=== PATIENT | female | born 1955 | race Caucasian/White ===

== ENCOUNTER 2018-07-19 13:29 | Day surgery (SDC) | payer MEDICARE ==
[2018-07-17 15:22] LABS: EOSINOPHILS # (AUTO) 0.2 X10'3 (0-0.9); EOSINOPHILS % (AUTO) 3.7 % (0-6); HEMATOCRIT 41.4 % (35.0-45.0); HEMOGLOBIN 13.8 g/dl (12.0-16.0); LYMPHOCYTES # (AUTO) 1.3 X10'3 (1.1-4.8); LYMPHOCYTES % (AUTO) 28.4 % (21-51); MEAN CORPUSCULAR HEMOGLOBIN 30.1 PG (27.0-31.0); MEAN CORPUSCULAR HGB CONC 33.4 g/dL (33.0-36.5); MEAN CORPUSCULAR VOLUME 90.3 FL (78-98); MONOCYTES # (AUTO) 0.3 X10'3 (0-0.9); MONOCYTES % (AUTO) 7.3 % (2-12); NEUTROPHILS # (AUTO) 2.8 X10'3 (1.8-7.7); NEUTROPHILS % (AUTO) 59.6 % (42-75); PLATELET COUNT 276 X10'3 (140-440); RED BLOOD COUNT 4.58 X10'6 (4.20-5.60); RED CELL DISTRIBUTION WIDTH 14.7 % (11.5-14.5); WHITE BLOOD COUNT 4.8 X10'3 (4.5-11.0)
[2018-07-17 15:32] LABS: INR 1.1 INR; PARTIAL THROMBOPLASTIN TIME 26 SECONDS (22-32); PROTHROMBIN TIME 10.7 SECONDS (9.0-12.0)
[2018-07-17 15:34] LABS: ANION GAP 8 (8-16); BLOOD UREA NITROGEN 20 MG/DL (7-18); BUN/CREATININE RATIO 21.3 (6.6-38.0); CALCIUM 9.2 MG/DL (8.5-10.1); CHLORIDE 107 MMOL/L (99-107); CREATININE 0.94 MG/DL (0.40-0.90); GLUCOSE 91 MG/DL (70-104); POTASSIUM 3.9 MMOL/L (3.5-5.1); SODIUM 143 MMOL/L (135-145); TOTAL CARBON DIOXIDE 28.2 MMOL/L (24-32); eGFR 61 ML/MIN
[~2018-07-19] VITALS: Ht 180.3 cm; Wt 101.2 kg
[2018-07-19] VITALS (9 sets, daily range): BP systolic 88–210; BP diastolic 64–118
[2018-07-19] MEDS ORDERED: LORazepam 0.5 MG tablet PO ONE (13:55)
[2018-07-19] MEDS ORDERED: diphenhydrAMINE 25mg capsule PO ONE (13:55)
[2018-07-19] MEDS ORDERED: normal saline 1000ml 1,000 ML IV SCH (13:55)
[2018-07-19] MEDS ORDERED: CYCL5TAB PO (15:03)
[2018-07-19] MEDS ORDERED: MORP-64 PO (15:03)
[2018-07-19] MEDS ORDERED: LEVO100T9 PO (15:03)
[2018-07-19] MEDS ORDERED: FLUO20CA39 PO (15:03)
[2018-07-19] MEDS ORDERED: DOCU-273 PO (15:03)
[2018-07-19] MEDS ORDERED: HYDR25SU48 RC (15:03)
[2018-07-19] MEDS ORDERED: MULT-955 PO (15:03)
[2018-07-19] MEDS ORDERED: MINO100T PO (15:03)
[2018-07-19] MEDS ORDERED: BUPR150T8 PO (15:03)
[2018-07-19] MEDS ORDERED: SPIR25TA5 PO (15:03)
[2018-07-19] MEDS ORDERED: FLUT16SP2 BOTHNARES (15:03)
[2018-07-19] MEDS ORDERED: CHOL10002 PO (15:03)
[2018-07-19] MEDS ORDERED: NALT50TA PO (15:03)
[2018-07-19] MEDS ORDERED: LORA10TA7 PO (15:03)
[2018-07-19] MEDS ORDERED: iohexol 350MG/ML 100ml bottle IV ONE (16:12)
[2018-07-19] MEDS ORDERED: LIDOcaine 1% (10mg/ml)w/preservative injection 20ml MDV ONE (16:12)
[2018-07-19] MEDS ORDERED: midazolam 2 mg/2 ml injection ONE ×2 (16:58→17:09)
[2018-07-19] MEDS ORDERED: diphenhydrAMINE 50 mg/ml inj ONE (16:58)
[2018-07-19] MEDS ORDERED: fentaNYL/PF 50MCG/1 ML 2ML syringe ONE (16:58)
[2018-07-19] MEDS ORDERED: HYDROcodone/acetaminophen 10/325mg tab PO PRN (17:55)
[2018-07-19] MEDS ORDERED: ondansetron/PF 4mg/2ml inj ONE (17:59)
[2018-07-19] MEDS ORDERED: HYDROcodone/acetaminophen 5mg/325mg tablet PO PRN (18:00)
[2018-07-19] MEDS ORDERED: morphine ER 15mg tablet PO ONE (18:05)
[2018-07-19] MEDS ORDERED: proCHLORperazine 10 MG/2 ml inj IV PRN (18:05)
[2018-07-19] MEDS ORDERED: ondansetron/PF 4mg/2ml inj IV PRN (18:05)
== END 2018-07-19 19:15 | disposition home or self-care (01) ==
LOC: SSTAY O 13:29
PROVIDERS: ATTEND Internal Medicine Interventional Cardiology
DX: I20.9 Angina pectoris, unspecified (principal); I10 Essential (primary) hypertension; F32.9 Major depressive disorder, single episode, unspecified; E78.5 Hyperlipidemia, unspecified; Z88.6 Allergy status to analgesic agent; Z88.8 Allergy status to other drugs, medicaments and biological substances; Z79.899 Other long term (current) drug therapy; Z87.891 Personal history of nicotine dependence
CPT/HCPCS: 36415; 80048; 85025; 85610; 85730; 93005; 93458; 99152; A6257; J1200; J1644; J2001; J2250; J2405; J3010; J7030; Q0163; Q9967; A4620; C1760; C1769

== ENCOUNTER 2020-10-23 09:50 | Outpatient (CLI) | payer OTHER ==
[~2020-10-23] VITALS: Ht 180.3 cm; Wt 98.4 kg
[~2020-10-23 09:50] MED LIST: BUPR150T8 PO; CHOL10002 PO; CYCL5TAB PO; DOCU-273 PO; FLUO20CA39 PO; FLUT16SP2 BOTHNARES; HYDR25SU48 RC; LEVO100T9 PO; LORA10TA7 PO; MINO100T PO; MORP-92 PO; MULT-955 PO; NALT50TA PO; SPIR25TA5 PO
[2020-10-23] MEDS ORDERED: ESTR1PAT34 TD (12:02)
[2020-10-23] MEDS ORDERED: VITA-268 PO (12:02)
[2020-10-23] MEDS ORDERED: 5-HY100C PO (12:02)
[2020-10-23] MEDS ORDERED: MAGN400C PO (12:02)
[2020-10-23] MEDS ORDERED: OXYB15TA19 PO (12:02)
[2020-10-23] MEDS ORDERED: PROG100C11 PO (12:02)
[2020-10-23] MEDS ORDERED: AMLO2.5T2 PO (12:02)
[2020-10-23] MEDS ORDERED: LEVO15TA5 PO (12:02)
[2020-10-23 12:42] LABS: EOSINOPHILS # (AUTO) 0.2 X10'3 (0-0.9); EOSINOPHILS % (AUTO) 3.1 % (0-6); LYMPHOCYTES # (AUTO) 1.2 X10'3 (1.1-4.8); LYMPHOCYTES % (AUTO) 22.8 % (21-51); MEAN CORPUSCULAR HEMOGLOBIN 30.5 PG (27.0-31.0); MEAN CORPUSCULAR HGB CONC 33.4 g/dL (33.0-36.5); MEAN CORPUSCULAR VOLUME 91.3 FL (78-98); MEAN PLATELET VOLUME 8.4 FL (7.4-10.4); MONOCYTES # (AUTO) 0.3 X10'3 (0-0.9); MONOCYTES % (AUTO) 5.4 % (2-12); NEUTROPHILS # (AUTO) 3.5 X10'3 (1.8-7.7); NEUTROPHILS % (AUTO) 67.7 % (42-75); PRE OP HEMATOCRIT 45.5 % (35.0-45.0); PRE OP HEMOGLOBIN 15.2 g/dL (12.0-16.0); PRE OP PLATELET COUNT 260 X10'3 (140-440); RED BLOOD COUNT 4.98 X10'6 (4.20-5.60); RED CELL DISTRIBUTION WIDTH 14.9 % (11.5-14.5)
[2020-10-23 13:08] LABS: ALBUMIN 4.1 G/DL (3.4-5.0); ALBUMIN/GLOBULIN RATIO 1.3 (1.1-1.5); ALKALINE PHOSPHATASE 62 IU/L (46-116); BLOOD UREA NITROGEN 17 MG/DL (7-18); BUN/CREATININE RATIO 18.1 (6.6-38.0); CALCIUM 8.5 MG/DL (8.5-10.1); CHLORIDE 108 MMOL/L (99-107); CREATININE 0.94 MG/DL (0.40-0.90); PRE OP ALT 25 U/L (30-65); PRE OP ANION GAP 8 (8-16); PRE OP AST 20 U/L (10-37); PRE OP BILIRUB, TOTAL 0.9 MG/DL (0.0-1.0); PRE OP GLUCOSE 89 MG/DL (70-104); PRE OP POTASSIUM 3.8 MMOL/L (3.4-5.1); PRE OP SODIUM 144 MMOL/L (135-145); TOTAL CARBON DIOXIDE 27.6 MMOL/L (24-32); TOTAL PROTEIN 7.2 G/DL (6.4-8.2); eGFR 60 ML/MIN
[2020-10-28] MEDS ORDERED: ringers solution, lacted 1,000 ML IV SCH (05:00)
[2020-10-28] MEDS ORDERED: celeCOXIB 100mg capsule PO ONE (05:30)
[2020-10-28] MEDS ORDERED: oxyCODONE SR 10mg (sust. release) tab -2 tabs (20mg) PO ONE (05:30)
[2020-10-28] MEDS ORDERED: gabapentin 300mg capsule PO ONE (05:30)
[2020-10-28] MEDS ORDERED: acetaminophen 325mg tablet PO ONE (05:30)
[2020-10-28] MEDS ORDERED: vancomycin 1,500 MG in NS 300ml IV soln IV ONE (05:30)
[2020-10-28] MEDS ORDERED: famotidine 20mg tablet PO ONE (05:30)
[2020-10-28] MEDS ORDERED: cefazolin/dext.iso 2gm/100ml IV ONE (05:30)
[2020-10-28] MEDS ORDERED: metoclopramide 5 mg/ml inj IV ONE (05:30)
[2020-10-28] MEDS ORDERED: TRANEXAMIC ACID 1 GM IN NACL,ISO-OS 100 ML IV ONE (06:00)
== END 2020-10-23 23:59 | disposition home or self-care (01) ==
LOC: PRE-OP 09:50 → EDSTATUS 10-28 08:45
PROVIDERS: ATTEND Orthopaedic Surgery
DX: Z01.818 Encounter for other preprocedural examination (principal); M17.11 Unilateral primary osteoarthritis, right knee; M25.561 Pain in right knee; R00.1 Bradycardia, unspecified; Z20.822 Contact with and (suspected) exposure to COVID-19
CPT/HCPCS: 36415; 71046; 80053; 84443; 85025; 86885; 86900; 86901; 87081; 93005; U0003; U0005; J3370; J7040; J7120

== ENCOUNTER 2020-12-09 06:20 | Day surgery (SDC) | payer OTHER ==
[2020-12-02 12:29] LABS: BASOPHILS # (AUTO) 0.1 X10'3 (0-0.2); EOSINOPHILS # (AUTO) 0.2 X10'3 (0-0.9); EOSINOPHILS % (AUTO) 3.4 % (0-6); LYMPHOCYTES # (AUTO) 1.6 X10'3 (1.1-4.8); LYMPHOCYTES % (AUTO) 24.8 % (21-51); MEAN CORPUSCULAR HEMOGLOBIN 30.7 PG (27.0-31.0); MEAN CORPUSCULAR HGB CONC 33.5 g/dL (33.0-36.5); MEAN CORPUSCULAR VOLUME 91.6 FL (78-98); MEAN PLATELET VOLUME 7.6 FL (7.4-10.4); MONOCYTES # (AUTO) 0.3 X10'3 (0-0.9); MONOCYTES % (AUTO) 4.9 % (2-12); NEUTROPHILS # (AUTO) 4.2 X10'3 (1.8-7.7); NEUTROPHILS % (AUTO) 65.9 % (42-75); PRE OP HEMATOCRIT 45.1 % (35.0-45.0); PRE OP HEMOGLOBIN 15.1 g/dL (12.0-16.0); PRE OP PLATELET COUNT 278 X10'3 (140-440); RED BLOOD COUNT 4.93 X10'6 (4.20-5.60); RED CELL DISTRIBUTION WIDTH 15.2 % (11.5-14.5)
[2020-12-02 12:35] LABS: CLARITY,URINE CLEAR (Clear); COLOR,URINE YELLOW (Yellow); GLUCOSE, URINE NEGATIVE (Neg); KETONES,URINE NEGATIVE (Neg); LEUKOCYTE ESTERASE ,URINE NEGATIVE (Neg); NITRITES, URINE NEGATIVE (Neg); OCCULT BLOOD,URINE TRACE-LYSED (Neg); PROTEIN,URINE NEGATIVE (Neg); UROBILINOGEN,URINE 0.2 E.U/dL (0.2-1.0)
[2020-12-02 12:40] LABS: UA COLLECTION TYPE CLN CATCH MIDSTREAM
[2020-12-02 12:41] LABS: BACTERIA,URINE NONE SEEN /HPF (Neg); MUCUS STRANDS NONE SEEN /LPF (Neg); RBC,URINE 0-2 /HPF (0-2); SQUAMOUS EPITHELIAL CELL,UR FEW /LPF (FEW); WBC,URINE NONE SEEN /HPF (0-4)
[2020-12-02 12:45] LABS: ALBUMIN 4.3 G/DL (3.4-5.0); ALBUMIN/GLOBULIN RATIO 1.4 (1.1-1.5); ALKALINE PHOSPHATASE 61 IU/L (46-116); BLOOD UREA NITROGEN 14 MG/DL (7-18); BUN/CREATININE RATIO 15.9 (6.6-38.0); CALCIUM 8.4 MG/DL (8.5-10.1); CHLORIDE 107 MMOL/L (99-107); CREATININE 0.88 MG/DL (0.40-0.90); PRE OP ALT 34 U/L (30-65); PRE OP ANION GAP 9 (8-16); PRE OP AST 24 U/L (10-37); PRE OP BILIRUB, TOTAL 0.7 MG/DL (0.0-1.0); PRE OP GLUCOSE 96 MG/DL (70-104); PRE OP POTASSIUM 3.5 MMOL/L (3.4-5.1); PRE OP SODIUM 145 MMOL/L (135-145); TOTAL CARBON DIOXIDE 29.2 MMOL/L (24-32); TOTAL PROTEIN 7.4 G/DL (6.4-8.2); eGFR 65 ML/MIN
[~2020-12-09] VITALS: Ht 180.3 cm; Wt 95.3 kg
[2020-12-09] VITALS (21 sets, daily range): BP systolic 109–167; BP diastolic 49–92
[~2020-12-09 06:20] MED LIST changes: +5-HY100C PO; +AMLO2.5T2 PO; -BUPR150T8 PO; -DOCU-273 PO; +ESTR1PAT34 TD; -FLUO20CA39 PO; -FLUT16SP2 BOTHNARES; -HYDR25SU48 RC; +HYDROmorphone 1 mg/ml syringe IV PRN; +HYDROmorphone inj. 0.5 MG/0.5 ML DISP.SYRIN IV PRN; +LEVO15TA5 PO; +MAGN400C PO; -NALT50TA PO; +OXYB15TA19 PO; +PROG100C11 PO; -SPIR25TA5 PO; +VITA-268 PO; +acetaminophen 325mg tablet PO ONE; +acetaminophen 325mg tablet PO PRN; +bisacodyl 10mg suppository rectal RC PRN; +cefazolin/dext.iso 2gm/100ml IV ONE; +celeCOXIB 100mg capsule PO ONE; +cyclobenzaprine 10mg tablet PO PRN; +diphenhydrAMINE 25mg capsule PO PRN; +famotidine 20mg tablet PO ONE; +gabapentin 300mg capsule PO ONE; +magnesium hydroxide 30ml (MOM) UD suspension PO PRN; +metoclopramide 5 mg/ml inj IV ONE; +oxyCODONE SR 10mg (sust. release) tab -2 tabs (20mg) PO ONE; +ringers solution, lacted 1,000 ML IV SCH; +tranexamic acid 1gm/0.7% sal. 100 ML IV ONE; +vancomycin 1,500 MG in NS 300ml IV soln IV ONE
--- NOTE | 2020-12-09 09:04 | NUR ---
PT STATES ALLERGY TO ALL NSAIDS, REACTION HTN. DR MCFARLAND AND DR MATHEW AWARE. CELEBREX HELD PER MD
[2020-12-09] MEDS ORDERED: ROPIVAcaine 0.5% (5mg/ml) 30ml vial ONE ×2 (09:05→10:09)
[2020-12-09] MEDS ORDERED: cloNIDine hcl/PF 100mcg/ml inj ONE (09:05)
[2020-12-09] MEDS ORDERED: vancomycin 1,000mg inj ONE (09:05)
[2020-12-09] MEDS ORDERED: epiNEPHrine 1 mg/ml inj ONE (09:05)
[2020-12-09] MEDS ORDERED: fentaNYL/PF 50MCG/1 ML 2ML syringe ONE ×2 (09:31→10:42)
[2020-12-09] MEDS ORDERED: MIDAZolam 1 MG/ML 5ML VIAL ONE (09:42)
[2020-12-09] MEDS ORDERED: morphine 2 MG/ML inj. syringe IV PRN (10:00)
[2020-12-09] MEDS ORDERED: ROPIVAcaine 0.2% (10 MG/5 ML) BOLUS INJECTION ADDCANAL PRN (10:00)
[2020-12-09] MEDS ORDERED: meperidine/PF 25mg/ml syringe IV PRN ×3 (10:00)
[2020-12-09] MEDS ORDERED: ringers solution, lacted 1,000 ML IV SCH (10:00)
[2020-12-09] MEDS ORDERED: proCHLORperazine 10 MG/2 ml inj IV PRN (10:00)
[2020-12-09] MEDS ORDERED: morphine 4 MG/ML inj SYRINge IV PRN (10:00)
[2020-12-09] MEDS ORDERED: ondansetron/PF 4mg/2ml inj IV PRN (10:00)
[2020-12-09] MEDS ORDERED: ePHEDrine 50MG/ML INJ. ONE (10:09)
[2020-12-09] MEDS ORDERED: propofol inj 20 ML IV ONE ×2 (10:09→10:33)
[2020-12-09] MEDS ORDERED: dexamethasone sod phosphate 4mg/ml inj. ONE (10:09)
[2020-12-09] MEDS ORDERED: LIDOcaine 1%/PF 5ML 10 MG/ML VIAL ONE (10:09)
[2020-12-09] MEDS ORDERED: diphenhydrAMINE 50 mg/ml inj ONE (10:09)
[2020-12-09] MEDS ORDERED: acetaminophen 1,000mg/100ml IV 100 ML IV ONE (10:26)
--- NOTE | 2020-12-09 11:27 | NUR ---
Received from OR via , accompanied by Anesthesiologist DR MCFARLAND and report given by Anesthesiolgist. PT PRESENT WITH RIGHT KNEE DRESSING TUCKER AN INTACT WITH COY DRESING AND POWDER PACK. PIV 18G LEFT WRIST. Addendum: 12/09/20 at 1147 by Margaret Perla RN, RN Amended: Links added.
[2020-12-09] MEDS: ROPIVAcaine 0.2%/PF PUMP/bolus 545 ML ADDCANAL SCH (11:57)
--- NOTE | 2020-12-09 12:28 | NUR ---
RECEIVED REPORT FROM PHIL ESTRADA
[2020-12-09] MEDS: aspirin 325mg tablet PO SCH (12:29)
--- NOTE | 2020-12-09 12:47 | NUR ---
PATIENT TAKEN TO ROOM WITH ALL BELONGINGS AND HOOKED UP TO MONITORS IN ROOM AND GIVEN CALL LIGHT, REPORT GIVEN TO ELMER VILLARREAL WHO HAS TAKEN OVER PATIENT CARE. Addendum: 12/09/20 at 1252 by Margaret Perla RN, RN Amended: Links added.
[2020-12-09] MEDS: ondansetron/PF 4mg/2ml inj IV PRN (13:23)
[2020-12-09] MEDS ORDERED: tranexamic acid 1gm/0.7% sal. 100 ML IV ONE (14:30)
[2020-12-09] MEDS: oxyCODONE/APAP 10/325mg tablet PO PRN ×2 (15:01→22:58)
[2020-12-09] MEDS: levoTHYROXINE 112mcg tablet PO SCH (16:00)
[2020-12-09] MEDS: cefazolin/dext.iso 2gm/100ml 100 ML IV SCH (16:17)
[2020-12-09] MEDS: loratadine 10mg tablet PO SCH (17:41)
[2020-12-09] MEDS: multivitamins, therapeutics tablet PO SCH (17:41)
[2020-12-09] MEDS: oxybutynin 5mg tablet PO SCH (17:42)
--- NOTE | 2020-12-09 18:26 | NUR ---
gave report to jefferson tse
[2020-12-09] MEDS ORDERED: VANCOMYCIN 1,500MG inj. 1,500 MG in normal saline 500ml IV soln 500 ML IV SCH (20:00)
[2020-12-09] MEDS: potassium cl 20mEq in 1/2 NS 1,000 ML IV SCH ×2 (20:19→20:33)
[2020-12-09] MEDS: ascorbic acid 500mg tablet PO SCH (20:20)
[2020-12-09] MEDS: amLODIPine 5mg tablet PO SCH (20:23)
[2020-12-09] MEDS: amLODIPine 2.5mg tablet PO SCH (20:23)
[2020-12-09] MEDS: progesterone, micronized 100mg capsule PO SCH (20:24)
[2020-12-09] MEDS: morphine ER 15mg tablet PO SCH (20:26)
[2020-12-09] MEDS: gabapentin 300mg capsule PO SCH (20:26)
[2020-12-09] MEDS: sennosides 8.6mg tablet PO SCH (20:26)
[2020-12-10] MEDS: cefazolin/dext.iso 2gm/100ml 100 ML IV SCH (00:22)
[2020-12-10 02:00] VITALS: BP 133/74
[2020-12-10] MEDS: oxyCODONE/APAP 10/325mg tablet PO PRN ×5 (03:12→22:18)
[2020-12-10] MEDS: ondansetron/PF 4mg/2ml inj IV PRN (04:19)
[2020-12-10 06:00] VITALS: BP 121/61
[2020-12-10] MEDS: potassium cl 20mEq in 1/2 NS 1,000 ML IV SCH ×3 (06:20→22:20)
[2020-12-10 06:30] LABS: BASOPHILS % (AUTO) 0.2 % (0-1); EOSINOPHILS % (AUTO) 0.5 % (0-6); HEMATOCRIT 36.3 % (35.0-45.0); HEMOGLOBIN 12.3 g/dl (12.0-16.0); LYMPHOCYTES # (AUTO) 0.6 X10'3 (1.1-4.8); LYMPHOCYTES % (AUTO) 5.9 % (21-51); MEAN CORPUSCULAR HEMOGLOBIN 31.4 PG (27.0-31.0); MEAN CORPUSCULAR HGB CONC 33.8 g/dL (33.0-36.5); MEAN CORPUSCULAR VOLUME 92.8 FL (78-98); MEAN PLATELET VOLUME 7.9 FL (7.4-10.4); MONOCYTES # (AUTO) 0.7 X10'3 (0-0.9); MONOCYTES % (AUTO) 7.5 % (2-12); NEUTROPHILS # (AUTO) 8.4 X10'3 (1.8-7.7); NEUTROPHILS % (AUTO) 85.9 % (42-75); PLATELET COUNT 216 X10'3 (140-440); RED BLOOD COUNT 3.91 X10'6 (4.20-5.60); RED CELL DISTRIBUTION WIDTH 15.2 % (11.5-14.5); WHITE BLOOD COUNT 9.7 X10'3 (4.5-11.0)
[2020-12-10 07:04] LABS: ANION GAP 10 (8-16); CHLORIDE 108 MMOL/L (99-107); POTASSIUM 3.9 MMOL/L (3.5-5.1); SODIUM 144 MMOL/L (135-145); TOTAL CARBON DIOXIDE 26.2 MMOL/L (24-32)
[2020-12-10] MEDS: levoTHYROXINE 112mcg tablet PO SCH (07:30)
[2020-12-10] MEDS ORDERED: ESTRADIOL 0.0375 MG TOP SCH (08:00)
[2020-12-10] MEDS: aspirin 325mg tablet PO SCH (08:38)
[2020-12-10] MEDS: multivitamins, therapeutics tablet PO SCH (08:38)
[2020-12-10] MEDS: gabapentin 300mg capsule PO SCH ×3 (08:38→20:44)
[2020-12-10] MEDS: loratadine 10mg tablet PO SCH (08:39)
[2020-12-10] MEDS: ascorbic acid 500mg tablet PO SCH ×2 (08:39→20:43)
[2020-12-10] MEDS: morphine ER 15mg tablet PO SCH ×2 (08:39→20:52)
[2020-12-10] MEDS: oxybutynin 5mg tablet PO SCH (08:39)
--- NOTE | 2020-12-10 11:56 | NUR ---
Joint surgery Consult: Pt s/p R knee surgery this admit. Pt seen by DORIS for written/verbal high protein ed w/ RD contact information provided. DORIS encouraged pt to contact dietitian's office if further questions/concerns. Addendum: 12/10/20 at [address] Amended: Links added.
[2020-12-10 14:00] VITALS: BP 134/67
[2020-12-10 18:00] VITALS: BP 146/69
--- NOTE | 2020-12-10 18:30 | NUR ---
Report to Zeina VILLARREAL
--- NOTE | 2020-12-10 18:40 | NUR ---
Patient in room [facility] 4014. I have received report from Val VILLARREAL and had the opportunity to ask questions and assume patient care.
[2020-12-10] MEDS: celeCOXIB 100mg capsule PO SCH (20:00)
[2020-12-10] MEDS: lactobacillus rhamnosus 10,000 MMU CELLS/CAPSULE PO SCH (20:43)
[2020-12-10] MEDS: sennosides 8.6mg tablet PO SCH (20:43)
[2020-12-10] MEDS: progesterone, micronized 100mg capsule PO SCH (20:43)
[2020-12-10] MEDS: amLODIPine 2.5mg tablet PO SCH (20:52)
[2020-12-10] MEDS: amLODIPine 5mg tablet PO SCH (20:53)
[2020-12-10 22:00] VITALS: BP 122/59
[2020-12-10] MEDS: ROPIVAcaine 0.2%/PF PUMP/bolus 545 ML ADDCANAL SCH (22:19)
[2020-12-11] MEDS: oxyCODONE/APAP 10/325mg tablet PO PRN ×3 (04:19→15:43)
[2020-12-11 06:00] VITALS: BP 146/69
--- NOTE | 2020-12-11 06:17 | NUR ---
Problems reprioritized. Patient report given, questions answered & plan of care reviewed with Betty VILLARREAL.
--- NOTE | 2020-12-11 06:28 | NUR ---
Patient in room [facility]TH[facility] 4014. I have received report from Zeina VILLARREAL and had the opportunity to ask questions and assume patient care.
[2020-12-11 06:29] LABS: BASOPHILS % (AUTO) 0.3 % (0-1); EOSINOPHILS # (AUTO) 0.1 X10'3 (0-0.9); EOSINOPHILS % (AUTO) 1.1 % (0-6); HEMATOCRIT 35.7 % (35.0-45.0); LYMPHOCYTES # (AUTO) 0.7 X10'3 (1.1-4.8); LYMPHOCYTES % (AUTO) 8.8 % (21-51); MEAN CORPUSCULAR HEMOGLOBIN 31.1 PG (27.0-31.0); MEAN CORPUSCULAR HGB CONC 33.6 g/dL (33.0-36.5); MEAN CORPUSCULAR VOLUME 92.6 FL (78-98); MEAN PLATELET VOLUME 7.9 FL (7.4-10.4); MONOCYTES # (AUTO) 0.9 X10'3 (0-0.9); MONOCYTES % (AUTO) 10.6 % (2-12); NEUTROPHILS # (AUTO) 6.7 X10'3 (1.8-7.7); NEUTROPHILS % (AUTO) 79.2 % (42-75); PLATELET COUNT 215 X10'3 (140-440); RED BLOOD COUNT 3.86 X10'6 (4.20-5.60); RED CELL DISTRIBUTION WIDTH 15.3 % (11.5-14.5); WHITE BLOOD COUNT 8.5 X10'3 (4.5-11.0)
[2020-12-11] MEDS: multivitamins, therapeutics tablet PO SCH (07:01)
[2020-12-11] MEDS: levoTHYROXINE 112mcg tablet PO SCH (07:01)
[2020-12-11] MEDS: lactobacillus rhamnosus 10,000 MMU CELLS/CAPSULE PO SCH (07:02)
[2020-12-11] MEDS: ascorbic acid 500mg tablet PO SCH (07:02)
[2020-12-11] MEDS: celeCOXIB 100mg capsule PO SCH (07:03)
[2020-12-11] MEDS: morphine ER 15mg tablet PO SCH (07:03)
[2020-12-11] MEDS: loratadine 10mg tablet PO SCH (07:03)
[2020-12-11] MEDS: gabapentin 300mg capsule PO SCH ×2 (07:03→12:23)
[2020-12-11] MEDS: oxybutynin 5mg tablet PO SCH (07:04)
[2020-12-11] MEDS: aspirin 325mg tablet PO SCH (09:21)
[2020-12-11 10:00] VITALS: BP 130/62
[2020-12-11] MEDS ORDERED: ASPI-1 PO (11:12)
[2020-12-11] MEDS: ROPIVAcaine 0.2%/PF PUMP/bolus 545 ML ADDCANAL SCH (15:44)
== END 2020-12-11 16:30 | disposition home or self-care (01) ==
LOC: PAS 06:20 → ORTHO 4S 07:38 → PAS 12-11 16:30
PROVIDERS: ATTEND Orthopaedic Surgery
DX: M17.11 Unilateral primary osteoarthritis, right knee (principal); G89.18 Other acute postprocedural pain; E66.9 Obesity, unspecified; Z68.29 Body mass index [BMI] 29.0-29.9, adult; I10 Essential (primary) hypertension; E03.9 Hypothyroidism, unspecified; Z86.11 Personal history of tuberculosis; Z20.822 Contact with and (suspected) exposure to COVID-19; Z87.891 Personal history of nicotine dependence; Z90.710 Acquired absence of both cervix and uterus; Z87.440 Personal history of urinary (tract) infections; Z88.5 Allergy status to narcotic agent; Z88.8 Allergy status to other drugs, medicaments and biological substances; Z91.011 Allergy to milk products; Z79.899 Other long term (current) drug therapy
CPT/HCPCS: 27447; 36415; 64448; 73560; 76937; 80051; 80053; 81001; 82948; 85025; 87081; 97110; 97116; 97535; C1713; C1776; J0131; J0171; J0735; J0780; J1100; J1170; J1200; J2175; J2250; J2405; J2704; J2765; J2795; J3010; J3370; J7040; J7120; U0003; U0005; Z7506; Z7508; Z7512; A4215; A7000; G0378; J3480

== ENCOUNTER 2023-09-06 07:46 | Day surgery (SDC) | payer MEDICARE ==
[~2023-09-06] VITALS: Ht 180.3 cm; Wt 93.3 kg
[2023-09-06] VITALS (15 sets, daily range): BP systolic 134–171; BP diastolic 79–97; PULSE 51–78; RESP 9–16; TEMP 97.8; O2SAT 92–100
[~2023-09-06 07:46] MED LIST changes: +AMLO-381 PO; -AMLO2.5T2 PO; +B-CO1TAB; +CALCIUM PO; -CHOL10002 PO; +FURO-150 PO; -HYDROmorphone 1 mg/ml syringe IV PRN; -HYDROmorphone inj. 0.5 MG/0.5 ML DISP.SYRIN IV PRN; +LEVO5TAB13 PO; +LIDOcaine 1% w/EPI 1:100,000 inj. MDV 50 ML VIAL ONE; -LORA10TA7 PO; +MAGN100T PO; -MAGN400C PO; -MINO100T PO; -MORP-92 PO; -MULT-955 PO; -OXYB15TA19 PO; +OXYB5TAB21 PO; +TURMERIC/GINGER; -VITA-268 PO; +VITAMIN D3; -acetaminophen 325mg tablet PO ONE; -acetaminophen 325mg tablet PO PRN; -bisacodyl 10mg suppository rectal RC PRN; -cefazolin/dext.iso 2gm/100ml IV ONE; -celeCOXIB 100mg capsule PO ONE; +cocaine 4% topical solution 4ml bottle ONE; -cyclobenzaprine 10mg tablet PO PRN; -diphenhydrAMINE 25mg capsule PO PRN; +epiNEPHrine 1 mg/ml 30ml MDV ONE; -famotidine 20mg tablet PO ONE; -gabapentin 300mg capsule PO ONE; -magnesium hydroxide 30ml (MOM) UD suspension PO PRN; -metoclopramide 5 mg/ml inj IV ONE; +mupirocin 2% ointment 22GM ONE; -oxyCODONE SR 10mg (sust. release) tab -2 tabs (20mg) PO ONE; -ringers solution, lacted 1,000 ML IV SCH; -tranexamic acid 1gm/0.7% sal. 100 ML IV ONE; -vancomycin 1,500 MG in NS 300ml IV soln IV ONE
[2023-09-06] MEDS: famotidine 20mg tablet PO ONE (09:03)
[2023-09-06] MEDS: cefazolin 2gm/D5W 100mL 100 ML IV ONE (09:04)
[2023-09-06] MEDS: ringers solution, lacted 1,000 ML IV SCH (09:04)
[2023-09-06] MEDS: tranexamic acid inj. 1,000 MG in normal saline IV soln 100ML IV ONE (09:04)
[2023-09-06] MEDS: oxymetazoline 15 ML nasal spray NS ONE (09:14)
[2023-09-06] MEDS ORDERED: sevoflurane 250ml liquid IH ONE (10:29)
[2023-09-06] MEDS ORDERED: fentaNYL/PF 50MCG/1 ML 2ML syringe ONE (10:33)
[2023-09-06] MEDS ORDERED: midazolam 1 mg/ML 2ml injection ONE (10:33)
[2023-09-06] MEDS ORDERED: propofol inj 20 ML IV ONE (10:37)
[2023-09-06] MEDS: epiNEPHrine 1 mg/ml 30ml MDV OGT ONE (11:14)
[2023-09-06] MEDS: lidocaine 1%/epinephrine 1:100,000 inj. 50ml multi-dose vial IJ ONE (11:17)
[2023-09-06] MEDS: tranexamic acid 100mg/ml inj. ONE (11:17)
[2023-09-06] MEDS ORDERED: proCHLORperazine 10 MG/2 ml inj IV PRN (12:00)
[2023-09-06] MEDS ORDERED: morphine 2 MG/ML inj. syringe IV PRN (12:00)
[2023-09-06] MEDS ORDERED: meperidine/PF 25mg/ml syringe IV PRN ×2 (12:00)
[2023-09-06] MEDS ORDERED: ringers solution, lacted 1,000 ML IV SCH (12:00)
[2023-09-06] MEDS ORDERED: dexamethasone sod phosphate 4mg/ml inj. ONE (12:09)
[2023-09-06] MEDS ORDERED: ondansetron/PF 4mg/2ml inj ONE (12:09)
[2023-09-06] MEDS: acetaminophen 1,000mg/100ml IV 100 ML IV ONE (12:40)
[2023-09-06] MEDS ORDERED: oxymetazoline 15 ML nasal spray NS ONE (12:41)
[2023-09-06] MEDS: meperidine/PF 25mg/ml syringe IV PRN (12:48)
[2023-09-06] MEDS: enalaprilat dihydrate 2.5mg/2ml vial IV PRN (13:15)
[2023-09-06] MEDS: ondansetron/PF 4mg/2ml inj IV PRN (13:23)
[2023-09-06] MEDS: morphine 4 MG/ML inj SYRINge IV PRN (13:35)
[2023-09-06] MEDS: labetalol 20mg/4ml (5mg/ml) syringe IV PRN (13:35)
[2023-09-06] MEDS: salt irrigation nasal spray 45 ML SPRAY NS ONE (14:30)
[2023-09-06] MEDS: mupirocin 2% nasal ointment 1gm UD NS ONE (14:31)
== END 2023-09-06 14:59 | disposition home or self-care (01) ==
LOC: PAS 07:46
PROVIDERS: ATTEND Otolaryngology
DX: J34.2 Deviated nasal septum (principal); J34.3 Hypertrophy of nasal turbinates; J32.9 Chronic sinusitis, unspecified; J34.89 Other specified disorders of nose and nasal sinuses; I10 Essential (primary) hypertension; E03.9 Hypothyroidism, unspecified; I25.2 Old myocardial infarction; M19.90 Unspecified osteoarthritis, unspecified site; Z87.891 Personal history of nicotine dependence; Z79.890 Hormone replacement therapy; Z79.899 Other long term (current) drug therapy; Z90.710 Acquired absence of both cervix and uterus; Z98.890 Other specified postprocedural states; Z88.6 Allergy status to analgesic agent; Z88.5 Allergy status to narcotic agent; Z88.1 Allergy status to other antibiotic agents
CPT/HCPCS: 30140; 30520; 31240; 31254; 31256; 31257; 61782; 82948; A6402; J0131; J0171; J0690; J1100; J2175; J2250; J2270; J2405; J2704; J3010; J3490; J7030; J7050; J7120; Z7506; Z7508; Z7512; A4618; A6449; A7000